=== PATIENT | female | born 1965 | race Caucasian/White ===

== ENCOUNTER 2018-03-07 07:26 | Day surgery (SDC) | payer BC ==
[2018-03-01 11:04] LABS: Potassium 4.2 mmol/L (3.5-5.1)
[2018-03-01 11:25] LABS: Absolute Lymphocytes (CBC) 2.1 K/uL (0.7-4.9); Absolute Monocytes 0.5 K/uL (0.1-1.3); Absolute Neutrophil 2.4 K/uL (1.8-8.0); Basophils % 0.6 % (0-1.3); Eosinophils % 1.4 % (0-4.4); Hematocrit 40.3 % (36.0-45.0); Lymphocytes % 41.2 % (15.3-44.8); MCH 32.7 pg (27.0-35.0); MCV 93.7 fL (80-100); MPV 7.9 fL (7.6-11.3); Monocytes % 9.3 % (3.3-12.3)
--- NOTE | 2018-03-01 11:30 | RAD REPORT ---
EXAM DESCRIPTION: Amy Castañeda (2 Views)03/01/2018 10:52 am CLINICAL HISTORY: Breast cancer/preop COMPARISON: None FINDINGS: The lungs appear clear of acute infiltrate. The heart is normal size IMPRESSION: No acute abnormalities displayed
--- NOTE | 2018-03-02 10:30 | EKG ---
Test Date: 2018-03-01 Test Time: 10:38:20 [employer] Cook: JERICA MEASUREMENT RESULTS: Intervals: Rate: 56 HI: 184 QRSD: 74 QT: 412 QTc: 397 Dilley: P: 74 HI: 184 QRS: 31 T: 53 INTERPRETIVE STATEMENTS: Sinus bradycardia Otherwise normal ECG No previous ECG available for comparison Electronically Signed On 03-02-18 10:27:28 CDT by Saulo House
[2018-03-07] MEDS ORDERED: Ringers Lactate 1,000 ML IV ONE (07:42)
[2018-03-07] MEDS ORDERED: CEFAZOLIN/SWI 1gm 1 GM/10 ML SYR ONE (09:00)
[2018-03-07] MEDS ORDERED: PROPOFOL 200 MG/20 ML VIAL IV ONE (09:26)
[2018-03-07] MEDS ORDERED: LIDOCAINE 1% MPF 5 ML VIAL ONE (09:26)
[2018-03-07] MEDS ORDERED: MIDAZOLAM HCL 2 MG/2 ML INJ ONE (09:26)
[2018-03-07] MEDS ORDERED: FENTANYL CITR 100 MCG/2 ML ONE (09:27)
[2018-03-07] MEDS: METHYLENE BLUE 0.5% 10 ML AMP ONE ×2 (09:35→09:55)
--- NOTE | 2018-03-07 09:51 | RAD REPORT ---
EXAM DESCRIPTION: NM - Lymphoscintigraphy - 03/07/2018 8:46 am CLINICAL HISTORY: Breast cancer. TECHNIQUE: Four injections of 0.1 millicuries technetium filtered sulfur colloid were administered i nto the periareolar regions of the right breast. A post procedure scintigram demonstrates radiotracer in these locations. IMPRESSION: Nuclear medicine lymphoscintigraphy for breast carcinoma.
[2018-03-07] MEDS ORDERED: KETOROLAC 30 MG/ML INJ ONE (10:56)
[2018-03-07] MEDS ORDERED: ONDANSETRON HCL 40 MG/20 ML VIAL ONE (11:20)
[2018-03-07] MEDS ORDERED: MEPERIDINE HCL 25 MG/0.5 ML ONE ×2 (11:42→11:49)
[2018-03-07] MEDS: CODEINE 30MG/APAP 300MG TAB ONE ×2 (12:28→13:22)
--- NOTE | 2018-03-07 13:24 | RAD REPORT ---
EXAM DESCRIPTION: [facility] BREAST NEEDLE LOCALIZATION - 03/07/2018 11:12 am CLINICAL HISTORY: Breast carcinoma. TECHNIQUE: The skin and subcutaneous tissues were anesthetized with Lidocaine. Utilizing a 3D mammog raphic grid guidance a needle was placed into the upper right breast. Through this a Kopan's hook wir e was placed into the cluster of microcalcifications within the upper right breast. The patient then left the mammography department for surgery. IMPRESSION: Needle wire localization of microcalcifications within the upper right breast prior to s urgery.
--- NOTE | 2018-03-07 13:28 | RAD REPORT ---
EXAM DESCRIPTION: [facility] BRE[facility] TISSUE SAMPLE - 03/07/2018 11:19 am CLINICAL HISTORY: Breast carcinoma. FINDINGS: The post surgical excision mammogram demonstrates the cluster of microcalcifications as w ell as the stereotactic localizing clip to lie within the central portion of the resected breast spec reid.
--- NOTE | 2018-03-07 15:28 | OP ---
Date of Procedure: 03/07/2018 Surgeon: Emil Low MD Bag Filler: MISTI Ayala. Preoperative Diagnosis: Right breast cancer. Postoperative Diagnosis: Right breast cancer. Procedure: Right breast lumpectomy and sentinel node biopsy with needle localization. Estimated Blood Loss: Minimal. Specimen: Baldwin node, which is negative for metastatic diseased and lumpectomy margins were free. Findings: As above. Anesthesia: General. Complications: None. Disposition: The patient tolerated the procedure in stable condition and taken to Recovery in good g eneral condition. Procedure In Detail: The patient was brought to the OR and placed in the supine position. General a nesthesia was begun. Methylene blue injected under sterile conditions. The right periareolar region and breast massaged and then the patient was prepped and draped in usual sterile fashion. The patie nt had a needle localization prior to surgery. Location of the lesion with respect to the needle was discussed in detail with Dr. Danielson and then counter device was used to identify the sentinel node in the right axilla. All numbers were recorded in the medical records and then a 3-cm incision on t he right axillary region was made. Subcutaneous tissue was divided deep to it. A blue lymph node id entified and excised. Vascular clips utilized as needed and bleeding controlled with cautery and 3-0 silk ties, and sent to Pathology. Frozen section revealed no evidence of metastatic disease. Wound was irrigated. Bleeding controlled with cautery. A 3-0 chromic used to approximate subcutaneous ti ssue and close the skin. Then ellipsed the skin around the needle in the right superior aspect of th e breast. Subcutaneus tissue divided and tract of the needle followed and the good core tissue all t he way around the tip of the needle excised down to the pectoralis fascia and sent to radiology for c onfirmation. Confirmation was obtained and then reconfirmed in the frozen lab. Then wound irrigated , bleeding controlled with cautery. A 3-0 chromic was used to approximate subcutaneous tissue and cl ose the skin. Sterile dressing was applied. The patient was awakened and taken to Recovery in good general condition. Discharge Note: The patient will go to Day-Surgery and home when stable. Disposition: Home. Condition: Stable. Discharge Instructions: Resume home medications and diet. Activity as tolerated. No heavy lifting. Keep dressing clean and dry. Sponge bathe. Follow up in my office in 1 week. Call for appointmen bertrand Tylenol No.3 one tablet p.o. q.4 p.r.n. pain and Keflex 500 mg p.o. q.6. /ETIENNE Voice ID: [id number] Report ID: [id number]
== END 2018-03-07 13:30 | disposition home or self-care (01) ==
LOC: OR 07:26
PROVIDERS: ATTEND Surgery
PROC: 0HBU0ZX Excision of Left Breast, Open Approach, Diagnostic (ICD-10-PCS; 2018-03-07)
PROC: 0HBU0ZZ Excision of Left Breast, Open Approach (ICD-10-PCS; principal; 2018-03-07 10:15)
PROC: 07B60ZX Excision of Left Axillary Lymphatic, Open Approach, Diagnostic (ICD-10-PCS; 2018-03-07 10:15)
DX: D05.11 Intraductal carcinoma in situ of right breast (principal); Z88.0 Allergy status to penicillin; Z80.3 Family history of malignant neoplasm of breast
CPT/HCPCS: 19281; 36415; 71046; 76098; 78195; 80048; 85025; 88307; 88333; 93005; A9541; J0690; J2175; J2250; J2405; J3010